=== PATIENT | female | born 1930 | race Caucasian/White ===

== ENCOUNTER 2019-10-30 09:38 | Inpatient (IN) ==
[2019-10-30] MEDS ORDERED: Senna TAB 8.6 mg TAB PO PRN (17:02)
[2019-10-30] MEDS: [UNRECOGNIZED DRUG - OTHER] PO SCH (20:13)
[2019-10-30] MEDS: Multivitamins/Mins AREDS2 (NF) CAP PO SCH (20:13)
[2019-10-31] MEDS: [UNRECOGNIZED DRUG - OTHER] PO SCH ×2 (09:08→20:12)
[2019-10-31] MEDS: Multivitamins/Mins AREDS2 (NF) CAP PO SCH ×2 (09:08→20:12)
[2019-11-01 05:22] LABS: ABS Eosinophils 0.2 10^3/ul (0-0.6); ABS Lymphocytes 1.4 10^3/ul (1.0-4.8); ABS Neutrophils 4.5 10^3/ul (1.5-7.7); Eosinophil % 2.3 %; Hematocrit 26 % (35-47); Lymphocyte % 19.3 %; Mean Corpuscular HGB Conc 34 g/dL (31-36); Mean Corpuscular Hemoglobin 32 pg (27-31); Mean Corpuscular Volume 92 fL (80-97); Mean Platelet Volume 8.7 fL (7.4-10.4); Platelet Count 234 10^3/uL (150-450); Red Blood Count 2.84 10^6 /uL (3.70-4.87); Red Cell Distribution Width 14 % (10-15); White Blood Count 7.2 10^3/uL (3.5-10.8)
[2019-11-01 05:30] LABS: Potassium 3.6 mmol/L (3.5-5.0); Total Bilirubin 0.4 mg/dL (0.2-1.0)
[2019-11-01 05:36] LABS: Albumin/Globulin Ratio 1.2 (1-3); BUN/Creatinine Ratio 22.6 (8-20); EGFR African American 109.7 (>60); EGFR Non-African American 90.6 (>60); Globulin 2.6 g/dL (2-4); Total Protein 5.6 g/dL (6.4-8.9)
[2019-11-01] MEDS: Multivitamins/Mins AREDS2 (NF) CAP PO SCH ×2 (10:06→21:50)
[2019-11-01] MEDS: [UNRECOGNIZED DRUG - OTHER] PO SCH ×2 (10:06→21:48)
[2019-11-02 05:05] LABS: ABS Basophils 0.1 10^3/ul (0-0.2); ABS Eosinophils 0.2 10^3/ul (0-0.6); ABS Lymphocytes 1.4 10^3/ul (1.0-4.8); ABS Monocytes 0.8 10^3/ul (0-0.8); ABS Neutrophils 4.2 10^3/ul (1.5-7.7); Eosinophil % 3.1 %; Hematocrit 26 % (35-47); Hemoglobin 9.3 g/dL (12.0-16.0); Lymphocyte % 20.3 %; Mean Corpuscular HGB Conc 35 g/dL (31-36); Mean Corpuscular Hemoglobin 33 pg (27-31); Mean Corpuscular Volume 92 fL (80-97); Mean Platelet Volume 8.5 fL (7.4-10.4); Platelet Count 263 10^3/uL (150-450); Red Blood Count 2.86 10^6 /uL (3.70-4.87); Red Cell Distribution Width 14 % (10-15); White Blood Count 6.7 10^3/uL (3.5-10.8)
[2019-11-02] MEDS: Multivitamins/Mins AREDS2 (NF) CAP PO SCH ×2 (09:40→21:47)
[2019-11-02] MEDS: Magnesium Hydroxide LIQ 30 ML UDC PO PRN (09:40)
[2019-11-02] MEDS: [UNRECOGNIZED DRUG - OTHER] PO SCH ×2 (09:40→21:47)
[2019-11-02] MEDS ORDERED: Polyethylene Glycol 3350 17 GM PACKET PO PRN (10:41)
[2019-11-02] MEDS: Senna TAB 8.6 mg TAB PO SCH (21:48)
[2019-11-03] MEDS: [UNRECOGNIZED DRUG - OTHER] PO SCH ×2 (09:16→21:24)
[2019-11-03] MEDS: Multivitamins/Mins AREDS2 (NF) CAP PO SCH ×2 (09:16→21:25)
[2019-11-03] MEDS: Senna TAB 8.6 mg TAB PO SCH (21:30)
[2019-11-04] MEDS: [UNRECOGNIZED DRUG - OTHER] PO SCH ×2 (09:56→19:46)
[2019-11-04] MEDS: Multivitamins/Mins AREDS2 (NF) CAP PO SCH ×2 (09:56→19:46)
[2019-11-04] MEDS: Senna TAB 8.6 mg TAB PO SCH (19:46)
[2019-11-05] MEDS: [UNRECOGNIZED DRUG - OTHER] PO SCH ×2 (08:41→21:10)
[2019-11-05] MEDS: Multivitamins/Mins AREDS2 (NF) CAP PO SCH ×2 (08:41→21:11)
[2019-11-05] MEDS: Senna TAB 8.6 mg TAB PO SCH (21:11)
[2019-11-06] MEDS: [UNRECOGNIZED DRUG - OTHER] PO SCH ×2 (09:14→21:26)
[2019-11-06] MEDS: Multivitamins/Mins AREDS2 (NF) CAP PO SCH ×2 (09:14→21:27)
[2019-11-06] MEDS: Magnesium Hydroxide LIQ 30 ML UDC PO PRN (14:54)
[2019-11-06] MEDS: Senna TAB 8.6 mg TAB PO SCH (21:30)
[2019-11-07] MEDS: [UNRECOGNIZED DRUG - OTHER] PO SCH ×2 (08:43→20:01)
[2019-11-07] MEDS: Multivitamins/Mins AREDS2 (NF) CAP PO SCH ×2 (08:44→20:01)
[2019-11-07] MEDS: Senna TAB 8.6 mg TAB PO SCH (20:14)
[2019-11-08 06:19] VITALS: BP 155/77
[2019-11-08 07:02] LABS: ABS Basophils 0.1 10^3/ul (0-0.2); ABS Eosinophils 0.2 10^3/ul (0-0.6); ABS Lymphocytes 1.5 10^3/ul (1.0-4.8); ABS Monocytes 0.7 10^3/ul (0-0.8); ABS Neutrophils 5.9 10^3/ul (1.5-7.7); Hematocrit 29 % (35-47); Lymphocyte % 18.3 %; Mean Corpuscular HGB Conc 35 g/dL (31-36); Mean Corpuscular Hemoglobin 32 pg (27-31); Mean Corpuscular Volume 92 fL (80-97); Mean Platelet Volume 7.8 fL (7.4-10.4); Platelet Count 363 10^3/uL (150-450); Red Blood Count 3.15 10^6 /uL (3.70-4.87); Red Cell Distribution Width 14 % (10-15); White Blood Count 8.3 10^3/uL (3.5-10.8)
[2019-11-08 07:21] LABS: Albumin 3.5 g/dL (3.2-5.2); Albumin/Globulin Ratio 1.1 (1-3); BUN/Creatinine Ratio 16.2 (8-20); Calcium 9.3 mg/dL (8.6-10.3); EGFR African American 98.6 (>60); EGFR Non-African American 81.5 (>60); Globulin 3.1 g/dL (2-4); Potassium 3.8 mmol/L (3.5-5.0); Total Bilirubin 0.3 mg/dL (0.2-1.0); Total Protein 6.6 g/dL (6.4-8.9)
[2019-11-08] MEDS: [UNRECOGNIZED DRUG - OTHER] PO SCH (08:59)
[2019-11-08] MEDS: Multivitamins/Mins AREDS2 (NF) CAP PO SCH (08:59)
== END 2019-11-08 13:22 | disposition home health service (06) | DRG 945 ==
LOC: PMRU 14:53
PROVIDERS: ADMIT Physical Medicine & Rehabilitation; ATTEND Physical Medicine & Rehabilitation